=== PATIENT | female | born 1980 | race Caucasian/White ===

== ENCOUNTER 2023-11-08 19:08 | Emergency (ER) | payer OTHER, SELFPAY ==
[2023-11-08 19:09] VITALS: BP 107/69; PULSE 61; RESP 20; TEMP 36.6; O2SAT 97; BMI 25.8
--- NOTE | 2023-11-08 19:17 | HMH.EDGENADL ---
Discharge Plan Disposition Patient Disposition: Xfer Psychiatric Hosp Condition: Fair Referrals Follow up/Referrals: Arcadio Steven APRN [Primary Care Provider] - See instructions Clinical Impressions Clinical Impression: Suicidal ideation Stand Alone Forms Stand Alone Forms: Transfer Record - ED Print Language Print Language: Bhutanese Discharge ED Provider: Bam Iglesias General Adult HPI <NI El - Last Filed: 11/08/23 22:52> General Chief complaint: Psychiatric Symptoms Stated complaint: SI Time Seen by Provider: 11/08/23 19:17 History of Present Illness HPI narrative: Patient presents via EMS for evaluation of suicidal ideations. Patient does have a past medical history of multiple psychiatric disorders and is currently a resident of [facility]. Patient states that she has wanted to harm herself for approximately 2 weeks by multiple different methods but currently today was jumping off of a bridge or jumping out in front of a truck. Patient has these episodes quite frequently and does see a mental health provider reportedly she says at [facility] although I am unaware of the provider that provides services at [facility]. Related Data Allergies Allergy/AdvReac Type Severity Reaction Status Date / Time Penicillins Allergy Intermediate Verified 11/09/23 01:36 ziprasidone [From Geodon] Allergy Intermediate Verified 11/09/23 01:36 chlorpromazine Allergy Verified 11/09/23 01:36 [From Thorazine] PFSH <NI El - Last Filed: 11/08/23 22:52> [facility] Disclaimer: The information contained in this section may have been updated after the patient was seen, as this information can be updated by other users. Medical History Schizo-affective schizophrenia Bipolar 1 disorder Social History (Updated 11/08/23 @ 22:52 by NI El) Smoking Status: Current every day smoker alcohol intake: former current occupational status: disabled Travel in the last 8 weeks: None <NI El - Last Filed: 11/08/23 22:52> ROS Obtained: Yes Systems reviewed as appropriate & no additional complaints except as documented Physical Exam <NI El - Last Filed: 11/08/23 22:52> General General appearance: alert and in no apparent distress Respiratory Respiratory exam: Present normal lung sounds bilaterally Cardiovascular Cardiovascular exam: Present regular rate Neurological Exam Neurological exam: Present alert and oriented X3 Psychiatric Psychiatric exam: Present suicidal ideation Medical Decision Making <NI El - Last Filed: 11/08/23 22:52> Medical Records Medical records reviewed: Yes I reviewed the patient's medical records. [facility] Inquiry Pt receiving controlled substance: No Vital Signs: 11/08/23 19:09 11/08/23 20:30 11/08/23 22:00 Temperature 97.8 F Temperature Source Oral Pulse Rate 60 55 L Pulse Rate [Left] 61 Respiratory Rate 20 20 20 Blood Pressure 120/70 121/73 Blood Pressure [Right Arm] 107/69 L Blood Pressure Mean [Right Arm] 81 Blood Pressure Source Automatic Cuff Automatic Cuff Blood Pressure Source [Right Arm] Automatic Cuff Blood Pressure Position Supine Supine Blood Pressure Position [Right Arm] Sitting 02 Sat by Pulse Oximetry 97 97 97 Oxygen Delivery Method Room Air Room Air Room Air 11/08/23 23:30 11/09/23 01:00 11/09/23 03:15 Temperature 98.3 F Temperature Source Oral Pulse Rate 50 L 55 L 52 L Pulse Rate [Left] Respiratory Rate 20 20 20 Blood Pressure 110/70 120/71 106/73 L Blood Pressure [Right Arm] Blood Pressure Mean [Right Arm] Blood Pressure Source Automatic Cuff Automatic Cuff Blood Pressure Source [Right Arm] Blood Pressure Position Supine Supine Blood Pressure Position [Right Arm] 02 Sat by Pulse Oximetry 97 97 97 Oxygen Delivery Method Room Air Room Air Room Air 11/09/23 08:15 11/09/23 09:
--- NOTE | 2023-11-08 19:47 | ECG_ITS ---
APPROVED REPORT Exam: Resting ECG HR:54 bpm ECG Measurements Heart Rate 54 AXES MN 170 P 45 QRSd 87 QRS 81 QT 458 T 70 QTc 443 Conclusion SINUS BRADYCARDIA BORDERLINE ECG No STEMI Electronically signed by : GIO CHILD, 11/09/2023 06:24:51
[2023-11-08 20:18] LABS: Basophils % 0.4 % (0.1-2.0); Eosinophils # 0.2 K/mm3 (0.0-0.4); Eosinophils % 2.6 % (0.1-12.0); Hematocrit 38.3 % (37.0-47.0); Hemoglobin 12.4 g/dL (12.2-16.2); Lymphocytes # 2.2 K/mm3 (0.7-4.5); Lymphocytes % 31.9 % (10-50); Mean Corpuscular HGB Conc 32.3 g/dL (31.8-35.4); Mean Corpuscular Hemoglobin 30.3 pg (27.0-31.2); Mean Corpuscular Volume 93.7 fl (81-99); Mean Platelet Volume 8.3 fl (7.4-10.4); Monocytes # 0.4 K/mm3 (0.1-1.0); Monocytes % 5.9 % (1.7-9.3); Neutrophils # 4.1 K/mm3 (1.8-7.8); Neutrophils % 59.3 % (37.0-80.0); Platelet Count 172 K/mm3 (142-424); Red Blood Count 4.08 M/mm3 (4.20-5.40); Red Cell Distribution Width 13.9 % (11.5-17.5); White Blood Count 6.9 K/mm3 (4.8-10.8)
--- NOTE | 2023-11-08 20:22 | PC.NURSE ---
Patient walked to restroom and back to room.
[2023-11-08 20:23] LABS: Chloride 109 mmol/L (98-107)
[2023-11-08 20:24] LABS: Albumin Level 3.5 g/dl (3.5-5.0); Potassium 3.7 mmoL/L (3.5-5.1); Sodium 136 mmol/L (136-145)
[2023-11-08 20:27] LABS: Alanine Aminotransferase 17 U/L (12-78); Albumin/Globulin Ratio 1.3 (1.1-1.8); Alkaline Phosphatase 51 U/L (38-126); Anion Gap 4.7 mEq/L (5-15); Aspartate Amino Transferase 27 U/L (14-36); Bilirubin,Total 0.4 mg/dl (0.2-1.3); Blood Urea Nitrogen 10 mg/dl (7-17); Calcium 8.3 mg/dl (8.4-10.2); Carbon Dioxide 26 mmol/L (22.0-30.0); Creatinine Clearance Estimated 125 mL/min (50-200); Estimated Glomerular Filt Rate 91 ml/min (>60); GFR (African American) 110 ML/MIN (>60); Globulin 2.6 g/dL (1.3-3.2); Glucose 87 mg/dl (74-100); Total Protein,Serum 6.1 g/dl (6.3-8.2)
[2023-11-08 20:28] LABS: Acetaminophen < 10 ug/ml (10-30); Salicylate < 1.0 mg/dL (2.0-20.0)
[2023-11-08 20:30] VITALS: BP 120/70; PULSE 60; RESP 20; O2SAT 97
--- NOTE | 2023-11-08 20:59 | PC.NURSE ---
Patient walked to restroom and back at this time.
[2023-11-08 21:02] LABS: Microscopic, Urine URINE MICROSCOPIC (MICROSCOPIC)
[2023-11-08 21:04] LABS: Appearance,Urine CLEAR (Clear); Bilirubin,Urine Negative (Negative); Blood, Urine 1+ (Negative); Color,Urine YELLOW (Yellow); Glucose,Urine (UA) Negative (Negative); Ketones,Urine Negative (Negative); Leukocyte Esterase,Urine Negative (Negative); Nitrate,Urine Negative (Negative); PH,Urine 7.5 (5.0-8.5); Protein,Urine Negative (Negative); Urobilinogen,Urine 0.2 EU/dl (0.2)
[2023-11-08 21:11] LABS: Bacteria,Urine Trace /lpf; WBC,Urine Occasional #/hpf (0-3)
[2023-11-08 21:26] LABS: Ethyl Alcohol < 10 mg/dl (0-10)
[2023-11-08 21:26] LABS: Barbiturates Screen,Urine Negative ng/ml (<200)
[2023-11-08 21:27] LABS: Amphetamine/Metha Screen,Urine Negative ng/ml (<1000); Benzodiazepines Screen,Urine Negative ng/ml (<200)
[2023-11-08 21:28] LABS: Cocaine Screen,Urine Negative ng/ml (<300)
[2023-11-08 21:29] LABS: Cannabinoid Screen,Urine Positive ng/ml (<50); Methadone Screen,Urine Negative ng/ml (<300)
[2023-11-08 21:30] LABS: Phencyclidine Screen,Urine Negative ng/ml (<25)
[2023-11-08 21:31] LABS: Opiate Screen,Urine Negative ng/ml (<300)
--- NOTE | 2023-11-08 21:41 | PC.NURSE ---
Patient walked to restroom and back.
[2023-11-08 22:00] VITALS: BP 121/73; PULSE 55; RESP 20; O2SAT 97
[2023-11-08 22:22] LABS: Urine Pregnancy, HCG Qual. Negative (Negative)
--- NOTE | 2023-11-08 22:33 | PC.NURSE ---
face sheet, ekg, drug screen and preg faxed to [phone] confirmation fax received
--- NOTE | 2023-11-08 22:55 | PC.NURSE ---
Spoke to Emmie intake nurse at [facility]. She confirmed that she recieved the fax papers.
[2023-11-08 23:30] VITALS: BP 110/70; PULSE 50; RESP 20; O2SAT 97
--- NOTE | 2023-11-08 23:51 | PC.NURSE ---
Spoke with Emmie at [facility], she request further information. CBC and ER records.
--- NOTE | 2023-11-09 00:44 | PC.NURSE ---
Emmie from [facility] called and did a zoom call with the patient. Pt. states that Emmie was going to talk to someone on her end and our ED physician. She will then call back about inpatient status.
--- NOTE | 2023-11-09 00:58 | PC.NURSE ---
[facility] called, stated they was contacting the doctor and would call us back
[2023-11-09 01:00] VITALS: BP 120/71; PULSE 55; RESP 20; O2SAT 97
--- NOTE | 2023-11-09 01:04 | PC.NURSE ---
Emmie from [facility] said the patient was not accepted to [facility] . Patient was last inpatient at [facility] and she said to call them for inpatient treatment.
--- NOTE | 2023-11-09 01:34 | PC.NURSE ---
call to [facility] re transfer to their facility
--- NOTE | 2023-11-09 02:16 | PC.NURSE ---
Per conversation with [facility] staff, even though patient is a voluntary admisssion they want a court order to accept patient. ED provider informed.
--- NOTE | 2023-11-09 02:27 | PC.NURSE ---
documentation faxed to [facility] and confirmation received
--- NOTE | 2023-11-09 02:36 | PC.NURSE ---
Intake from [facility] speaking with the pt on the phone
[2023-11-09 03:15] VITALS: BP 106/73; PULSE 52; RESP 20; TEMP 36.8; O2SAT 97
--- NOTE | 2023-11-09 03:30 | PC.NURSE ---
Jannet with [facility] called back, pt accepted by Jannet Vee, number to call report [phone]
--- NOTE | 2023-11-09 03:49 | PC.NURSE ---
Report called to the [facility] Spoke with Marck in intake and Anabel ArmendarizAmpoule Filler. Gave report to Anabel. Pt. to go to the [facility] per EMS. EMS busy at this time. will call the [facility] when we have an ETA for transfer.
--- NOTE | 2023-11-09 06:09 | PC.NURSE ---
Pt. sleeping awaiting EMS transoprt to the [facility].
[2023-11-09 08:15] VITALS: BP 130/93; PULSE 61; RESP 16; O2SAT 97
--- NOTE | 2023-11-09 08:43 | PC.NURSE ---
pt walked to restroom and back to room.
[2023-11-09 09:26] VITALS: BP 130/93; PULSE 61; RESP 16; TEMP 36.8; O2SAT 97
== END 2023-11-09 09:32 ==
PROVIDERS: Emergency Medicine; Physician Assistant; Emergency Provider Student in an Organized Health Care Education/Training Program; PCP Nurse Practitioner Acute Care
DX: R45.851 Suicidal ideations (principal)
CPT/HCPCS: 80053; 80307; 80320; 80329; 81001; 81025; 85025; 93005; 99285; G0480